=== PATIENT | female | born 1935 | race Caucasian/White ===

== ENCOUNTER 2016-09-13 11:49 | Emergency (ER) | payer MEDICARE ==
[~2016-09-13] VITALS: Ht 160 cm; Wt 53.5 kg
[~2016-09-13 11:49] MED LIST: GLAUCOMA EYE DROPS BOTH EYES; THEO1CAP5 PO
[2016-09-13 12:40] VITALS: BP 151/95; PULSE 85; RESP 16; TEMP 97.8; O2SAT 95
--- NOTE | 2016-09-13 12:46 | PD ---
HPI Chief Complaint: dysuria Time Seen by Provider: 12:36 Travel History International Travel<30 days: No Contact w/Intl Traveler<30days: No Traveled to known affect area: No History of Present Illness HPI The patient is a 80-year-old female who presents emergency department for 3 day history of dysuria, frequency, urgency, and occasionally urinary incontinence. The patient also complains of suprapubic discomfort. The patient denies any nausea, vomiting, diarrhea, or upper abdominal pain. She does have a history of diverticulitis and UTIs. She denies any current abdominal pain however, denies any change in bowel habits. Symptoms are mild, there are no known alleviating or exacerbating factors. PFSH Past Medical History Asthma: Yes Diminished Hearing: No Menopausal: Yes Tubal Ligation: Yes Social History Alcohol Use: Yes (GLASS OF WINE DAILY) Tobacco Use: No Substance Use: No Allergies-Medications (Allergen,Severity, Reaction): Coded Allergies: Amoxicillin (Verified Allergy, Intermediate, Rash, 09/13/16) Reported Meds & Prescriptions Reported Meds & Active Scripts Active Reported Claritin (Loratadine) 10 Mg Cap 10 Mg PO DAILY Calcium 600 Mg Tab 600 Mg PO BID Theophylline CR (Theophylline) 300 Mg Tab 300 Mg PO BID Asmanex 120 Act Twisthaler (Mometasone 120 Act Inh) 220 Mcg/Act Inh 1 Puff INH HS [Glaucoma Eye Drops] 1 Drop BOTH EYES HS Review of Systems Except as stated in HPI: all other systems reviewed are Neg General / Constitutional: No: Fever Respiratory: No: Shortness of Breath Gastrointestinal: No: Nausea, Vomiting, Diarrhea, Abdominal Pain Genitourinary: Positive: Urgency, Frequency, Dysuria, Pelvic Pain (suprapubic discomfort) Physical Exam Narrative GENERAL: Awake, alert, very pleasant 80-year-old female who appears her stated age and is in no acute respiratory distress. SKIN: Warm and dry. HEAD: Atraumatic. Normocephalic. EYES: No injection or drainage. NECK: Trachea midline. No JVD. GASTROINTESTINAL: Abdomen soft, non-tender, nondistended. No rebound tenderness. Negative Al's. Negative McBurney's. Back: No CVA tenderness. MUSCULOSKELETAL: No obvious deformities. No clubbing. No cyanosis. No edema. NEUROLOGICAL: Awake and alert. No obvious cranial nerve deficits. Motor grossly within normal limits. Normal speech. PSYCHIATRIC: Appropriate mood and affect; insight and judgment normal. Data Data Last Documented VS Vital Signs Date Time Temp Pulse Resp B/P Pulse Ox O2 Delivery O2 Flow Rate FiO2 09/13/16 12:40 97.8 85 16 151/95 95 Orders Urinalysis - C+S If Indicated (09/13/16 12:41) Urine Culture (09/13/16 12:40) Labs Laboratory Tests Test 09/13/16 12:40 Urine Collection Type CLEAN CATCH Urine Color YELLOW Urine Turbidity CLOUDY Urine pH 7.0 Urine Specific [place] 1.008 Urine Protein 100 mg/dL Urine Glucose (UA) NEG mg/dL Urine Ketones NEG mg/dL Urine Occult Blood LARGE Urine Nitrite NEG Urine Bilirubin NEG Urine Leukocyte Esterase LARGE Urine RBC 4-9 /hpf Urine WBC INNUM /hpf Urine WBC Clumps MOD Urine Bacteria MOD /hpf Microscopic Urinalysis Comment CULTURE INDICATED MDM Medical Decision Making Medical Screen Exam Complete: Yes Emergency Medical Condition: Yes Medical Record Reviewed: Yes Interpretation(s) Laboratory Tests Test 09/13/16 12:40 Urine Collection Type CLEAN CATCH Urine Color YELLOW Urine Turbidity CLOUDY Urine pH 7.0 Urine Specific [place] 1.008 Urine Protein 100 mg/dL Urine Glucose (UA) NEG mg/dL Urine Ketones NEG mg/dL Urine Occult Blood LARGE Urine Nitrite NEG Urine Bilirubin NEG Urine Leukocyte Esterase LARGE Urine RBC 4-9 /hpf Urine WBC INNUM /hpf Urine WBC Clumps MOD Urine Bacteria MOD /hpf Microscopic Urinalysis Comment CULTURE INDICATED Differential Diagnosis Differential diagnosis includes UTI, pyelonephritis, diverticulitis, hemorrhagic cystitis, nephrolithiasis. Narrative Course A UA with culture and sensitivity was sent to lab. UA is positive for UTI. The patient was discharged home on Bactrim and Pyridium. She is advised to return if symptoms worsen or progress. Diagnosis Primary Impression: UTI (urinary tract infection) Qualified Code: N30.00 - Acute cystitis without hematuria Patient Instructions: General Instructions Additional Instructions: Medications as directed. Follow-up with your primary physician. Return if symptoms worsen or progress. Med/Other Pt SpecificInfo: Prescription(s) given Scripts Phenazopyridine (Pyridium)200 Mg [id number] Mg PO Q8H PRN (DYSURIA) 2 Days Ref 0 Prov:Gama French MD 09/13/16 Sulfamethoxazole-Trimethoprim (Bactrim DS)800-160 Mg Tab1 Tab PO BID #14 TAB Ref 0 Prov:Gama French MD 09/13/16 Disposition: 01 DISCHARGE HOME Condition: Stable Gama French MD Sep 13, 2016 12:46
[2016-09-13] MEDS ORDERED: CLAR10CA3 PO (13:00)
[2016-09-13] MEDS ORDERED: CALC600T13 PO (13:00)
[2016-09-13] MEDS ORDERED: ASMA220A INH (13:00)
[2016-09-13] MEDS ORDERED: THEO300T4 PO (13:00)
[2016-09-13 13:03] LABS: BLOOD, URINE LARGE (NEG); GLUCOSE,URINE NEG (NEG); KETONE, URINE NEG (NEG); NITRITE,URINE NEG (NEG)
[2016-09-13 13:10] LABS: METHOD OF COLLECTION CLEAN CATCH; URINE COLOR YELLOW (YELLW/STRAW)
[2016-09-13 13:11] LABS: BACTERIA, URINE MOD /hpf; COMMENT (UR) CULTURE INDICATED; CULTURE IF INDICATED CULTURE INDICATED; WBC, URINE INNUM /hpf (0-5)
[2016-09-13] MEDS ORDERED: BACT800T5 PO (13:18)
[2016-09-13] MEDS ORDERED: PYRI200T4 PO (13:18)
== END 2016-09-13 13:42 | disposition home or self-care (01) ==
LOC: PHED 11:49
DX: N30.00 Acute cystitis without hematuria (principal); B96.20 Unspecified Escherichia coli [E. coli] as the cause of diseases classified elsewhere
CPT/HCPCS: 81001; 87077; 87086; 87186; 99283

== ENCOUNTER 2016-09-21 07:51 | Emergency (ER) | payer MEDICARE ==
[~2016-09-21] VITALS: Ht 160 cm; Wt 51.1 kg
[~2016-09-21 07:51] MED LIST changes: +ASMA220A INH; +BACT800T5 PO; +CALC600T13 PO; +CLAR10CA3 PO; +PYRI200T4 PO; -THEO1CAP5 PO; +THEO300T4 PO
[2016-09-21 07:56] VITALS: BP 119/69; PULSE 81; RESP 16; TEMP 97.7; O2SAT 96
[2016-09-21] MEDS ORDERED: diphenhydrAMINE HCL 50 MG/ML VIAL IVP ONE (08:15)
[2016-09-21] MEDS ORDERED: SODIUM CHLORIDE 0.9% FLUSH 5 ML FLUSH IVF PRN (08:15)
--- NOTE | 2016-09-21 08:20 | PD ---
HPI . Rash Chief Complaint: Allergic/Adverse Reaction Time Seen by Provider: 08:05 Travel History International Travel<30 days: No Contact w/Intl Traveler<30days: No Traveled to known affect area: No History of Present Illness HPI Patient presents with a 2 to three-day history of some redness of her skin, particularly her face. She reports some mild itching. She states that she just generally feels uncomfortable. She has also had insomnia the past couple of nights. She states that she just tosses and turns and cannot get comfortable. She believes that all of this is secondary to a recent antibiotic that she took for urinary tract action. She was on Bactrim. She finished it 2 or 3 days ago. It was following this that her symptoms started. She does state that her urinary symptoms have completely resolved. PFSH Past Medical History Asthma: Yes Diminished Hearing: No Respiratory: Yes (asthma) Immunizations Current: Yes ?: Not Menopausal: Yes Tubal Ligation: Yes Social History Alcohol Use: Yes (GLASS OF WINE DAILY) Tobacco Use: No (NEVER) Substance Use: No Allergies-Medications (Allergen,Severity, Reaction): Coded Allergies: Amoxicillin (Verified Allergy, Intermediate, Rash, 09/21/16) Reported Meds & Prescriptions Reported Meds & Active Scripts Active Reported Claritin (Loratadine) 10 Mg Cap 10 Mg PO DAILY Calcium 600 Mg Tab 600 Mg PO BID Theophylline CR (Theophylline) 300 Mg Tab 300 Mg PO BID Asmanex 120 Act Twisthaler (Mometasone 120 Act Inh) 220 Mcg/Act Inh 1 Puff INH HS [Glaucoma Eye Drops] 1 Drop BOTH EYES HS Review of Systems Except as stated in HPI: all other systems reviewed are Neg General / Constitutional: No: Fever, Chills HENT: No: Rhinitis Respiratory: No: Shortness of Breath Gastrointestinal: No: Nausea, Vomiting Musculoskeletal: Positive: Other (general discomfort) Skin: Positive Rash, Positive Itching Psychiatric: Positive: Other (insomnia) Physical Exam Narrative GENERAL: This is a 80-year-old female who is awake and alert and able to give her own history. SKIN: Warm and dry. There is no raised rash that she has a diffuse macular, purplish rash on her legs and trunk. There is some mild erythema of her years. No warmth. The lesions are not raised. HEAD: Atraumatic. Normocephalic. EYES: Pupils equal and round. ENT: No nasal bleeding or discharge. Mucous membranes pink and moist. NECK: Trachea midline. Neck supple. CARDIOVASCULAR: Regular rate and rhythm. Heart sounds normal. RESPIRATORY: No accessory muscle use. Lungs are clear with good air movement throughout. GASTROINTESTINAL: Abdomen soft, non-tender, nondistended. MUSCULOSKELETAL: No obvious deformities. No edema. NEUROLOGICAL: Awake and alert. No obvious cranial nerve deficits. Motor grossly within normal limits. Normal speech. PSYCHIATRIC: Appropriate mood and affect; insight and judgment normal. Data Data Last Documented VS Vital Signs Date Time Temp Pulse Resp B/P Pulse Ox O2 Delivery O2 Flow Rate FiO2 09/21/16 07:56 97.7 81 16 119/69 96 Orders Basic Metabolic Panel (Bmp) (09/21/16 08:11) Complete Blood Count With Diff (09/21/16 08:11) Iv Access Insert/Monitor (09/21/16 08:11) Diphenhydramine Inj (Benadryl Inj) (09/21/16 08:15) Sodium Chloride 0.9% Flush (Ns Flush) (09/21/16 08:15) Creatine Kinase (Cpk) (09/21/16 08:11) Labs Laboratory Tests Test 09/21/16 08:17 White Blood Count 4.6 TH/MM3 Red Blood Count 4.66 MIL/MM3 Hemoglobin 14.3 GM/DL Hematocrit 42.7 % Mean Corpuscular Volume 91.7 FL Mean Corpuscular Hemoglobin 30.7 PG Mean Corpuscular Hemoglobin 33.5 % Concent Red Cell Distribution Width 13.1 % Platelet Count 230 TH/MM3 Mean Platelet Volume 7.7 FL Neutrophils (%) (Auto) 83.3 % Lymphocytes (%) (Auto) 12.8 % Monocytes (%) (Auto) 1.2 % Eosinophils (%) (Auto) 1.1 % Basophils (%) (Auto) 1.6 % Neutrophils # (Auto) 3.7 TH/MM3 Lymphocytes # (Auto) 0.6 TH/MM3 Monocytes # (Auto) 0.1 TH/MM3 Eosinophils # (Auto) 0.1 TH/MM3 Basophils # (Auto) 0.1 TH/MM3 CBC Comment DIFF FINAL Differential Comment Sodium Level 140 MEQ/L Potassium Level 3.5 MEQ/L Chloride Level 108 MEQ/L Carbon Dioxide Level 21.5 MEQ/L Anion Gap 11 MEQ/L Blood Urea Nitrogen 10 MG/DL Creatinine 0.81 MG/DL Estimat Glomerular Filtration 68 ML/MIN Rate Random Glucose 113 MG/DL Calcium Level 8.7 MG/DL Total Creatine Kinase 125 U/L [facility] Medical Decision Making Medical Screen Exam Complete: Yes Emergency Medical Condition: Yes Differential Diagnosis Differential diagnosis includes but is not limited to urticaria, ITP/TTP, idiopathic rash Narrative Course Patient presents with rash, itching and generalized discomfort for 2-3 days. This all started about the time she finished a course of Bactrim for UTI. Her skin does not have the typical appearance of a drug rash. I will check a CBC to look at her platelets and a CK to make sure that she does not have muscle breakdown. In the meantime, she will be given a dose of Benadryl. Last reviewed and unremarkable. In the meantime, she is better following Benadryl. She still has a rash but she states that it is not as pruritic. Diagnosis Primary Impression: Drug rash Med/Other Pt SpecificInfo: Prescription(s) given Scripts Hydroxyzine HCl 50 Mg Tab50 Mg PO QID PRN (RASH) #30 TAB Ref 0 Prov:Maritza Cr MD 09/21/16 Disposition: 01 DISCHARGE HOME Condition: Stable Maritza Cr MD Sep 21, 2016 08:20
[2016-09-21 08:33] LABS: AUTOMATED NEUTROPHIL # 3.7 TH/MM3 (1.8-7.7); BASOPHIL # 0.1 TH/MM3 (0-0.2); BASOPHIL % 1.6 % (0.0-2.0); EOSINOPHIL # 0.1 TH/MM3 (0-0.4); EOSINOPHIL % 1.1 % (0.0-4.0); HEMATOCRIT 42.7 % (35.0-46.0); LYMPH % 12.8 % (9.0-44.0); LYMPHOCYTE # 0.6 TH/MM3 (1.0-4.8); MEAN CELL VOLUME 91.7 FL (80.0-100.0); MEAN CORPUSCULAR HEMOGLOBIN 30.7 PG (27.0-34.0); MEAN CORPUSCULAR HGB CONC 33.5 % (32.0-36.0); MONO % 1.2 % (0.0-8.0); NEUT % 83.3 % (16.0-70.0); PLATELET COUNT 230 TH/MM3 (150-450); RED BLOOD COUNT 4.66 MIL/MM3 (4.00-5.30); RED CELL DISTRIBUTION WIDTH 13.1 % (11.6-17.2); WHITE BLOOD COUNT 4.6 TH/MM3 (4.0-11.0)
[2016-09-21 08:34] LABS: HEMO FLAGS DIFF FINAL
[2016-09-21 08:43] LABS: POTASSIUM 3.5 MEQ/L (3.5-5.1)
[2016-09-21 08:46] LABS: BICARBONATE 21.5 MEQ/L (21.0-32.0)
[2016-09-21] MEDS ORDERED: HYDR50TA94 PO (09:16)
== END 2016-09-21 09:29 | disposition home or self-care (01) ==
LOC: PHED 07:51
DX: L27.0 Generalized skin eruption due to drugs and medicaments taken internally (principal); G47.00 Insomnia, unspecified; J45.909 Unspecified asthma, uncomplicated
CPT/HCPCS: 80048; 82550; 85025; 96374; 99283; J1200